=== PATIENT | male | born 1985 | race Caucasian/White ===

== ENCOUNTER 2024-10-24 10:45 | Outpatient (CLI) | payer OTHER, SELFPAY ==
--- NOTE | ~2024-10-24 | XR_ITS ---
Clinical Indication: Dysphagia PA and lateral views of the chest: Comparison: None Findings: The lungs are clear, without evidence of focal consolidation or pleural effusion. Cardiome diastinal silhouette is within normal limits. Bones and soft tissues are unremarkable. Impression: Normal chest. Reviewed, dictated and finalized at location . Impression: Normal chest.
== END 2024-10-24 10:46 | disposition home or self-care (01) ==
PROVIDERS: PCP Internal Medicine; Visit Provider Internal Medicine
DX: R13.10 Dysphagia, unspecified (principal)
CPT/HCPCS: 71046

== ENCOUNTER 2024-12-23 01:33 | Day surgery (SDC) | payer OTHER, SELFPAY ==
[2024-12-12 13:40] VITALS: BMI 26.6
--- OUTSIDE RECORDS SUMMARY | 2024-12-23 01:36 | XMS_ITS | Referral Summary ---
Author Organization [address] Address [address] [place] [address] Care Team Providers Care Agent Licensing Clerk Name Role Phone Unknown, Notinfile Primary Care Provider Unavail able Allergies Active Allergy Reactions Criticality Noted Date Comments Codeine Unknown 10/15/2023 Sulfa (Sulfonamide Antibiotics) Unknown 07/2023 Medications No known medications Active Problems No known active problems Social History Tobacco Use Types Packs/Day Years Used Date Smoking Tobacco: Never Assessed Sex and Gender Information Value Date Recorded Sex Assigned at Not on file Legal Sex Male 2:24 PM CDT Gender Identity Not on file Sexual Orientation Not on file Last Filed Vital Signs Vital Sign Reading Time Taken Comments Blood Pressure 127/79 10/29/2023 2:19 PM CDT Pulse 83 10/29/2023 2:19 PM CDT Temperature 37.1 C (98.7 F) 10/29/2023 2:19 PM CDT Respiratory Rate 16 10/29/2023 2:19 PM CDT Oxygen Saturation 97% 10/29/2023 2:19 PM CDT Inhaled Oxygen Concentration - - Weight 86.2 kg (190 lb) 10/29/2023 2:19 PM CDT Height 175.3 cm (5' 9) 10/29/2023 2:19 PM CDT Body Mass Index 28.06 10/29/2023 2:19 PM CDT Plan of Treatment Not on file Insurance AETNA [facility] HMO Care Teams Agent Licensing Clerk Relationship Specialty Start Date End Date Unknown, Notinfile PCP - General 10/15/23
--- OUTSIDE RECORDS SUMMARY | 2024-12-23 01:36 | XMS_ITS | Continuity of Care Document ---
Author Organization [facility] Address [address] [place] [address] Phone Care Team Providers Care Back Tender Cloth Printing Name Role Phone Tray Will PA-C Unavailable Unavailable Allergies, Adverse Reactions, Alerts Substance Reaction Status Criticality Sulfa (Sulfonamide Antibiotics) Unknown Active No Information codeine Unknown Active No Information Medications Medication Instructions Dosage Effective Dates (start - stop) Status Comments multivitamin capsule one q day - Activ e ibuprofen 800 mg tablet take 1 tablet by oral route 3 times every day with food 800 MG - No Longer Active PHENERGAN 25MG 25 MG ORAL one q 4hrs prn nausea and vomitting - No Longer Active Procedures Procedure Date Postop followup visit Knee Orthosis, Adjustable Knee Joints, P ositiona Knee Arthrscpy Chondroplasty/debridement Knee Or Thigh surgery NEC PA At Surgery PA Assist At Surgery KNEE ARTHROSCOPY/SURGERY Knee Arthscpy W/lateral Release 016 Advance Directives Directive Yes / No Effective Date File Name No Information Encounters Encounter Description Practice Location Reason(s) For Visit Diagnoses Date Provider Providers Copied on Encounter [facility], [address] [place] [address], [id number], [place] tel:[phone] [facility] Other internal derangements of left kneeLoose body in knee, left kneeOther instability, left knee 0-201 [address] [place], [place], [id number] , . tel:[phone] [facility], [address] [place] [address], [id number], tel:[phone] [place] [facility] Patellar instability of left kneeLoose body in knee, left kneeChondral defect of left patella 6 [address] [place] [address], [id number] , . tel:[phone] [facility], [address] [place] [address], [id number], tel:[phone] [facility] No Information [address] [place] [address], [id number] , . tel:[phone] [facility], [address] [place] [address], [id number], tel:[phone] [facility] No Information [address] [place], [place], [id number] , [place]. [phone] Referring Provider: Ritu Fernandes, [address] [place], [address] . tel:[phone] [facility], [address] [place] [address], [id number], tel:[phone] [facility] No Information [address] [place], [place], [id number] , . [phone] [facility], [address] [place] [address], [id number], tel:[phone] [facility] No Information [address] [place] [address], [id number] , . [phone] Family History Family Member Type Diagnosis Age At Onset Problem (finding) Family history of Heart disease Payers Payer name Insurance type Covered republican ID Authoriza tion(s) A[employer]na CI [id number] Social History Type Description Quantity Date Captured Comments Alcohol Use Details Unknown Caffeine Use Details Unknown Tobacco Use Status Never smoked tobacco 2015 Smoking Status Never smoker Non-Smoking Tobacco Use Details : No Details Available : No Details Available Sex Male Vital Signs Date / Time: Height Weight BMI Pulse Rate Blood Pressure Temperature Respiratory Rate Body Surface Area Head Circumference Head Circ. Percentile Wt./Kaushik. Percentile BMI percentile Pulse Ox Inhaled Ox 1:46 PM 81.647 kg (180.00 lbs) 75 /min 108/64 mm[Hg] Chief Complaint And Reason For Visit No Information Reason For Referral Reason For Referral No Information History Of Present Illness Encounter Date Complaint History Of Prese nt Illness No Information Functional Status Date Functional Assessmen t No Information Instructions Date Instruction Additional Infor mation No Information Assessments Type Assessment Date assessment Other internal derangements of l eft knee assessment Loose body in knee, left knee De assessment Other instability, left knee Jun Patient Care Teams Name Effective Dates (start - stop) Status Members No Information
--- OUTSIDE RECORDS SUMMARY | 2024-12-23 01:36 | XMS_ITS | Clinical Summary ---
Author Organization [address] Address [address] [place] [address] Care Team Providers Care Sr. Unix System Administrator Name Role Phone Unknown, Notinfile Primary Care [...] on file Sexual Orientation Not on file Obstetrics History Last Filed Vital Signs Vital Sign Reading [...] 10/29/2023 2:19 PM CDT Plan of Treatment Health Maintenance Due Date Last Done Comments Depression Screening 1985 Hepatitis C Screening 1985 Varicella Vaccines (1 of 2 - 13+ 2-dose series) 1999 Regular Well Visit/Exam 18-64 2004 Covid-19 Vaccine ( season) 2024 07/12/2021, 10/29/2020, 10/01/2020 Influenza Vaccine (Season Ended) 2025 DTaP/Tdap/Td Vaccine (7 - Td or Tdap) 09/24/2028 09/24/2018, 09/25/2002, 03/03/1992, Additional history exists Hepatitis B Screening Completed 05/11/1997 , 12/18/1996, 11/05/1996 HPV Vaccines Aged Out No longer eligi ble based on patient's age to complete this topic Pneumococcal vaccine <65 Aged Out No longer eligible based on patient's age to complete this topic [facility] Care Teams Sr. Unix System Administrator Relationship Specialty Start Date End Date Unknown, Notinfile PCP - General 10/15/23
--- OUTSIDE RECORDS SUMMARY | 2024-12-23 01:37 | XMS_ITS | Data Portability ---
Author Organization [facility] IWONAMario Alberto Mcginnis Address [address] [place] [address] Care Team Providers Care Campaign Director Name Role Phone VALERIY VINES Primary Care Provider Assessment Encounter Date Assessment Date Assessment LastModified by Organization Details LastModified Time 10/16/2024 10/16/2024 obtain blood work upper endoscopy chest x-ray start on Protonix 40 mg a day and see me in 1 month [email or web address] Not available 10/18/2024 16:10:43 11/13/2024 11/13/2024 Low-fat diet continue PPI we will await upper endoscopy he will see me in about 4 months or so blood work prior low-fat diet [email or web address] Not available 11/14/2024 21:42:16 Plan of Treatment Reminders Order Date Submit Date Provider Last Modified By Organization Details Last Modified Time Details Appointments ANY 15 2024 10:15A M Valeriy Vines MD Not available Not available Not available Lab lipid panel, serum 2024 025 [email or web address] [facility], [address], [place], [address], 11/13/2024 13:49:22 CMP, serum or plasma 2024 025 [email or web address] [facility], [address], [place], [address], 11/13/2024 13:49:22 CBC w/ auto diff 2024 025 [email or web address] [facility], [address], [place], [address], 11/13/2024 13:49:22 CBC w/ auto diff 2024 025 RAFAL1,2,3 [facility], [address], [place], [address], 11/06/2024 13:36:07 CMP, serum or plasma 2024 025 RAFAL1,2,3 [facility], [address], [place], [address], 10/27/2024 09:44:45 lipid panel, serum 2024 025 [facility], [address], [place], [address], 10/27/2024 09:44:45 Referral None recorded. Procedures upper endoscopy procedure (EGD) (PROC) 2024 025 [facility], [address], [address], [place], [address], 12/16/2024 16:16:16 Surgeries None recorded. Imaging XR, chest 2024 025 [facility] (Imaging), [address], [place], [address], 10/24/2024 12:24:19 Medication Orders Protonix 40 mg tablet,de layed release 2024 025 [facility], [address], [place], [address], 10/16/2024 16:43:00 Patient TargetsNo targets recorded. Patient Instructions Encounter Date Encounter Id Patient Instructions Last Modified By Organization Details Last Modified Time 10/16/2024 [id number] A healthy lifestyle: care instructions [email or web address] Not available 10/16/2024 16:43:00 11/13/2024 [id number] A healthy lifestyle: care instructions [email or web address] Not available 11/13/2024 13:49:22 Reason for Referral None Reported. Results Created Date Observation Date Name Description Value Unit Range Abnormal Flag Note LastModifiedBy Organization Detail LastModifiedTime 10/25/1910/24/2024 XR, chest No observ ation record ed. [facility] [address], [place], [address], 11/14/2024 09:11:22 10/25/19 25 10/24/2024 XR, chest No observ ation record ed. RAFAL [facility] [address], [place], [address], 10/31/2024 15:42:17 Result Notes None recorded. Problems Name Problem SNOMED Code Status Onset Date Resolution Date Notes Provider Name and Address Organization Details Recorded Time [facility] 89670701 Active 2024 Valeriy Vines MD Attn: Chloé [address]ckeon,[address] [place], [address], [facility] 21:41:06 Dysphagia 59891710 Active 2024 Valeriy Vines MD Attn: Chlo[address]cke[address] [place], [address], [facility] 21:41:11 Problem Notes None recorded. Procedures Surgical History Date Name Laterality Status Provider Name and Address Organization Details Recorded Time 6 Knee Surgery completed Odalys Cruz MA [facility] 10/16/2024 16:29:08 3 open reduction of nasal fracture completed Odalys Cruz MA [facility] 10/16/2024 16:29:24 Imaging Results None recorded. Procedure Notes None recorded. Medical Equipment None Reported. Allergies Allergen ID Allergen Name Allergen Category Reaction Reaction Severity Criticality Documentation Date Start Date Code Code System Note Provider Name and Address Organization Details Recorded Time 090777 codeine medicatio n Not available Not available Not available 10/16/20242023 2670 RxNorm unrec ogniz ed react ion (text : Unkno wn, code: 85335 5006) (from [facility] sour [facility]) SHAI Tavarez [place] [facility] 14:49:06 878650 Substance with sulfonami de structure and antibacte rial mechanism of action (substanc e) medicatio n Not available Not available Not available 10/16/20242023 46849 8003 SNOMED unrec ogniz ed react ion (text : Unkno wn, code: 71073 5006) (from [facility] nal sourc e) SHAI Tavarez [place] [facility] [place] 14:49:10 Medications Name Sig Start Date Stop Date Status Note LastModified by Organization Details LastModified Time cephalexin 500 mg capsule TAKE 1 CAPSULE BY MOUTH TWICE DAILY FOR 10 DAYS 10/16 completed Not Available Not Available Not Available pantoprazole 40 mg tablet,delay ed release TAKE 1 TABLET BY MOUTH ONCE DAILY active Not Available Not Available No t Available cefdinir 300 mg capsule TAKE 1 CAPSULE BY MOUTH TWICE DAILY FOR 5 DAYS 10/16 completed Not Available Not Available Not Available Vitals Date Recorded Body height Body mass index (BMI) Body weight Heart rate Oxygen saturation Oxygen saturation in Arterial blood by Pulse oximetry Systolic blood pressure Diastolic blood pressure Provider Name and Address Organization Details Last Updated DateTime 175.26 cm 27.5 kg/m2 68166.6 2 g 88 /min 98 % 98 % 120 mm[Hg] 68 mm[Hg] Odalys Cruz [place] [facility] [place] 14:52:16 Date Recorded Body height Body mass index (BMI) Body weight Heart rate Oxygen saturation Oxygen saturation in Arterial blood by Pulse oximetry Systolic blood pressure Diastolic blood pressure Provider Name and Address Organization Details Last Updated DateTime 175.26 cm 27.5 kg/m2 69529.9 8 g 68 /min 98 % 98 % 120 mm[Hg] 64 mm[Hg] SHAI Tavarez - [facility] 11:36:51 Social History Question Answer Notes LastModified by Organizat ion Details LastModified Time Tobacco Smoking Status Never Smoker SHAI Tavarez [facility] 10/16/2024 14:49:32 Do You Have An Advance Directive? No Information n ot available 10/16/2024 Are You Blind Or Do You Have Difficulty Seeing? No Information n ot available 10/16/2024 What Is Your Level Of Caffeine Consumption? Moderate Information not available 10/16/2024 In The 14 Days Before Symptom Onset, Have You Had Close Contact With A Laboratory-confirm ed COVID-19 While That Case Was Ill? No Information n ot available 10/16/2024 In The 14 Days Before Symptom Onset, Have You Had Close Contact With A Person Who Is Under Investigation For COVID-19 While That Person Was Ill? No Information not available 10/16/2024 Have You Been To An Area Known To Be High Risk For COVID-19? No Information not available 10/16/2024 Are You Deaf Or Do You Have Serious Difficulty Hearing? No Information not available 10/16/2024 What Type Of Diet Are You Following? REGULAR Information n ot available 10/16/2024 Are There Any Guns Present In Your Home? No Information not available 10/16/2024 What Was The Date Of Your Most Recent Tobacco Screening? 11/13/2024 Information not available 11/13/2024 What Is Your Relationship Status? Information not available 10/16/2024 Do You Use Your Seat Belt Or Car Seat Routinely? Yes Information not available 10/16/2024 Do You Have Smoke And Carbon Monoxide Detectors In Your Home? Yes Information not available 10/16/2024 Do You Use Sunscreen Routinely? Yes Information not available 10/16/2024 Has Tobacco Cessation Counseling Been Provided? No Information not available 10/16/2024 Sex: Male Functional Status Question Answer Note LastModified by Organizat ion Details LastModified Time Do you use any illicit or recreational drugs? No Information not available 10/16/2024 Do you or have you ever used any other forms of tobacco or nicotine? No Information not available 10/16/2024 What is your level of alcohol consumption? Occasional Information not available 10/16/2024 Are you currently employed? Yes Information not available 10/16/2024 Are you able to care for yourself? Yes Information n ot available 10/16/2024 What is your exercise level? None Information not available 10/16/2024 Mental Status Question Answer Note LastModified by Organization D etails LastModified Time Do you feel stressed (tense, restless, nervous, or anxious, or unable to sleep at night)? [id number] Information not available 10/16/2024 Family History Relationship Description Onset Age of this Age Resolved Age Notes LastModified by Organization Details LastModified Time Mother Heart disease mebyma Not available 2024 16:28:16 Mother Hypertensive disorder mebyma Not available 2024 16:28:33 Father Heart disease mebyma Not available 2024 16:28:17 Father Hypercholest erolemia mebyma Not available 2024 16:28:24 Father Hypertensive disorder mebyma Not available 2024 16:28:33 Medical History No medical history recorded. Past Encounters Encounter ID Performer Location Encounter Start Date Encounter Closed Date Diagnosis/Indication Diagnosis SNOMED-CT Code Diagnosis ICD10 Code Diagnosis Note [id number] Valeriy Vines MD [facility] [address] [place] [address] 10/16/2024 14:26:30 10/16/2024 15:17:26 Body mass index 25-29 - overweight 093424671 Z68.27 Overweight 109453638 E66 .3 Dysphagia 02146868 R13.1 0 Screening for cardiovascular system disease 370582150 Z13.6 Adult [facility] th examination 109756471 Z00.00 [id number] Valeriy Vines MD [facility] [address] [place] [address] 11/13/2024 11:12:31 11/13/2024 12:54:53 Overweight in adulthood with body mass index of 25 or more but less than 30 165122107 E66.3 Z68.27 Overweight 869638095 E66 .3 Hyperlipidemia 62813020 E78.49 Dysphagia 46736778 R13.1 0 Body mass index 25-29 - overweight 594741951 Z68.27 Screening for cardiovascular system disease 520482861 Z13.6 Health Concerns Section Related Observation LastModified by Organization Detai ls LastModified Time None Recorded Concern Status LastModified by Organization Details LastModified Time None Recorded Advance Directives Directive N: Payers Encounter Date Sequence Insurance Name Policy Number Policy Phillip Covered Member ID Phillip Member ID Guarantor Name 10/16/2024 1 [employer] (POS II) [id number] Gavin Yoon Jose [id number] Gavin Woo Jose 11/13/2024 1 [employer] (POS II) [id number] Gavin Yoon Jose [id number] Gavin Coeultz Notes Date Note Type Note Provider Name and Address Organization Details Recorded Time 10/16/2024 text/html 39-year-old come s in reestablishing meds none allergies sulfa and codeine reaction unknown surgeries left knee arthroscopic surgery family history mom and dad with CAD socially does not smoke occasionally 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 10/18/2024 16:11:06 11/13/2024 text/html He is feeling be tter with the PPI upper endoscopy scheduled in a few weeks blood work showed some dyslipidemia Valeriy Vines MD Attn: [address] [place], [address], [facility] 11/14/2024 21:42:40
[2024-12-23 08:36] VITALS: BP 133/88; PULSE 57; RESP 18; TEMP 36.6; O2SAT 99
--- NOTE | 2024-12-23 08:42 | WPDANESEPPF ---
Anes - Initial Pre Proc Eval Procedure: Operation Date: 12/23/24 09:45 Proposed Procedures p Esophagogastroduodenoscopy - Hugo Orosco MD Date/Time: 12/23/24 08:42 Surgeon: Hguo Orosco MD Pre Op Diagnosis: Dysphagia, unspecified Patient Data Age: 39 Gender: M Height: 1.75 m Weight: 83 kg Last Vital Signs Temp 36.6 C 12/23/24 08:36 Pulse 57 L 12/23/24 08:36 Resp 18 12/23/24 08:36 BP 133/88 12/23/24 08:36 Pulse Ox 99 12/23/24 08:36 O2 Del Method Room Air 12/23/24 08:36 Allergies Allergy/AdvReac Type Severity Reaction Status Date / Time codeine Allergy Unknown UNKNOWN Verified 12/23/24 08:35 Sulfa (Sulfonamide Allergy Unknown UNKNOWN Verified 12/23/24 08:35 Antibiotics) Home Medications ?Medication ?Instructions ?Recorded ?Confirmed ?Type pantoprazole 40 mg tablet,delayed 40 mg PO DAILY 12/12/24 12/23/24 History release Patient hx anesthesia problems: none Family hx anesthesia problems: none Results Review: All pre-operative results and documents have been reviewed as part of the pre-operative evaluation. [facility] Past Medical History Medical History (Updated 12/23/24 @ 08:42 by Alessio Johnson MD) GERD (gastroesophageal reflux disease) Surgical History Surgical History (Updated 12/23/24 @ 08:44 by Alessio Johnson MD) H/O arthroscopic knee surgery Social History Social History Smoking status: Never smoker Substance use type: does not use Living arrangements: with family Spiritual care concerns: No Anes - Eval Final PreProcedure Day of Procedure 12/23/24 08:42 Patient weight: overweight Heart: regular rate and rhythm Lungs: clear to auscultation Airway: Mallampati scale class II Neurological: alert and oriented Last oral intake: >/= 8 hours ASA classification: I Emergent: no Anesthetic plan: proceed Anesthesia type and monitoring: general GIVS and standard monitoring Results Review: All pre-operative results and documents have been reviewed as part of the pre-operative evaluation. Informed Consent: The patient's anesthetic plan and its attendant risks and benefits were discussed with the patient/family/POA. Questions were solicited and answers provided to the satisfaction of the patient/family/POA.
[2024-12-23] MEDS: LACTATED RINGERS 1,000 ML 150 ML IV CONT (08:49)
--- NOTE | 2024-12-23 09:27 | PM.HPGS ---
History of Present Illness History of Present Illness Consent: Risks, benefits, and alternatives have been discussed and questions answered. Patient agrees to proceed with procedure. Chief complaint: Dysphagia, unspecified Narrative: Gavin Garcia is a 39 year old male here for first egd, h/o dysphagia Review of Systems Review of Systems: All systems reviewed & are unremarkable except as noted in HPI and below PMFSH Past Medical History Medical History (Updated 12/23/24 @ 09:27 by Hugo Orosco MD) Dysphagia GERD (gastroesophageal reflux disease) Surgical History Surgical History (Updated 12/23/24 @ 08:44 by Alessio Johnson MD) H/O arthroscopic knee surgery Social History Social History Smoking status: Never smoker Substance use type: does not use Living arrangements: with family Spiritual care concerns: No Meds Home Medications and Allergies Home Medications ?Medication ?Instructions ?Recorded ?Confirmed ?Type pantoprazole 40 mg tablet,delayed 40 mg PO DAILY 12/12/24 12/23/24 History release Allergies Allergy/AdvReac Type Severity Reaction Status Date / Time codeine Allergy Unknown UNKNOWN Verified 12/23/24 08:35 Sulfa (Sulfonamide Allergy Unknown UNKNOWN Verified 12/23/24 08:35 Antibiotics) Vital Signs Vital Signs - 24 hr 12/23/24 08:36 Temperature 97.8 F Pulse Rate 57 L Respiratory Rate 18 Blood Pressure 133/88 Pulse Oximetry 99 Oxygen Delivery Room Air Exam Const: General: comfortable and no acute distress HENMT: Face/Nose/Sinus: Normal nares present Eyes: General: appearance normal, both eyes and all related structures Neck: Neck: no JVD Resp: Auscultation: clear to auscultation bilaterally Cardio: Rate: regular rate Rhythm: regular rhythm GI: Inspection: non-distended GI Palp: Yes Soft to palpation Skin: General skin exam: normal color Neuro: General: gait normal Speech: normal speech Extrem: General: normal to inspection Psych: Mental Status: mental status grossly normal Assessment and Plan Assessment and plan (1) Dysphagia: Code(s): R13.10 - Dysphagia, unspecified Status: Acute Assessment and Plan: egd with bx
--- NOTE | 2024-12-23 09:38 | S_PTH ---
PATIENT: Gavin Garcia LOC: [facility]#:[id number] AGE/SX: 39/M ROOM: RE12/23/[address]: Hugo Orosco MD : 1985 BED: DIS: 12/23/2024 SPEC #: [id number] RECD: 12/23/24 10:46 STATUS: JIMENA RETuan #: [id number] CLAUDIA: 12/23/24 09:[address]: Hugo Orosco DEPT: [facility] Surgical RECD BY: Alfa Brown ENTERED: 12/23/24 10:46 SP TYPE: Surgical OTHR DR: Valeriy VinesMD Tissues: A - Gastric Biopsy B - Esophageal Biopsy C - Esophageal Biopsy Procedures: Hematoxylin and Eosin Stain Gross and Microscopic Level 4
[2024-12-23 09:43] VITALS: BP 106/71; PULSE 62; RESP 16; O2SAT 95
[2024-12-23 09:53] VITALS: BP 107/71; PULSE 60; RESP 18; O2SAT 96
[2024-12-23 10:03] VITALS: BP 116/79; PULSE 61; RESP 20; O2SAT 98
== END 2024-12-23 10:13 | disposition home or self-care (01) ==
PROVIDERS: PCP Internal Medicine; Referring Provider Internal Medicine; Visit Provider Internal Medicine Gastroenterology
PROC: 0DJ08ZZ Inspection of Upper Intestinal Tract, Via Natural or Artificial Opening Endoscopic (ICD-10-PCS; CPT 43249; principal; 2024-12-23 09:45)
DX: K22.2 Esophageal obstruction (principal); K29.50 Unspecified chronic gastritis without bleeding; K21.00 Gastro-esophageal reflux disease with esophagitis, without bleeding
CPT/HCPCS: 43249; 43239; 88305; C1726; J2003; J2704; J7120